=== PATIENT | male | born 1990 | race Two or more races ===

== ENCOUNTER 2018-12-12 11:34 | Emergency (ER) | payer SELFPAY ==
[2018-12-12] MEDS ORDERED: Lidocaine 1% 10 ML MDV INJECT ONE (11:48)
[2018-12-12] MEDS ORDERED: Diphtheria,Pertussis(Acell),Tetanus Vaccine 0.5 ML Syringe IM ONE (11:48)
[2018-12-12] MEDS ORDERED: Bacitracin Oint 1 GM U/D Packet TOP ONE (11:51)
--- NOTE | 2018-12-12 11:51 | EDM.PDOC ---
ED HPI GENERAL MEDICAL PROBLEM - General Chief Complaint: Laceration Stated Complaint: CUT FINGER Time Seen by Provider: 12/12/18 11:39 Source of Information: Reports: Patient, Search Engine Optimization Strategist History Limitations: Reports: No Limitations, Language Barrier - History of Present Illness INITIAL COMMENTS - FREE TEXT/NARRATIVE: HISTORY AND PHYSICAL: History of present illness: Patient is a 28-year-old male who is primarily speaking but is in with a friend who is interpreting for him, presents to the ED today after pinching his left ring finger in a boat hinge. Patient states he is not up-to-date on his vaccinations. Patient states she's been able to move his hand and has not had any difficulties or pain. Patient denies any prior injury to the area. Patient denies any other symptoms or concerns at this time. Patient denies fever, chills, chest pain, shortness of breath, or cough. Denies headache, neck stiff ness, change in vision, syncope, or near syncope. Denies nausea, vomiting, abdominal pain, diarrhea, constipation, or dysuria. Has not noted any blood in urine or stool. Patient has been eating and drinking appropriately. Review of systems: As per history of present illness and below otherwise all systems reviewed and negative. Past medical history: As per history of present illness and as reviewed below otherwise noncontributory. Surgical history: As per history of present illness and as reviewed below otherwise noncontributory. Social history: See social history for further information Family history: As per history of present illness and as reviewed below otherwise noncontributory. Physical exam: General: Patient is alert, oriented, and in no acute distress. Patient sitting comfortably on exam table. HEENT: Atraumatic, normocephalic, pupils equal and reactive bilaterally, negative for conjunctival pallor or scleral icterus, mucous membranes moist, TMs normal bilaterally, throat clear, neck supple, nontender, trachea midline. No drooling or trismus noted. No meningeal signs. No hot potato voice noted. Lungs: Clear to auscultation, breath sounds equal bilaterally, chest nontender. Heart: S1S2, regular rate and rhythm without overt murmur Abdomen: Soft, nondistended, nontender. Negative for masses or hepatosplenomegaly. Negative for costovertebral tenderness. Pelvis: Stable nontender. Genitourinary: Deferred. Rectal: Deferred. Skin: Intact, warm, dry. No lesions or rashes noted. Extremities: negative for cords or calf pain. Neurovascular unremarkable. There is a 3 cm laceration in the webspace of the fourth digit on the left hand that is superficial. There is a 1 cm adjacent laceration is superficial on the fourth digit of the left hand. Minimal bleeding. Full range of motion/strength of all digits of the left hand. Radial pulses grossly intact with capillary refill less than 2 seconds. Neuro: Awake, alert, oriented. Cranial nerves II through XII unremarkable. Cerebellum unremarkable. Motor and sensory unremarkable throughout. Exam nonfocal. Notes: Discussed the importance for follow-up with primary care provider. Voices understanding and is agreeable to plan of care. Denies any further questions or concerns at this time. Diagnostics: Hand x-ray Therapeutics: Lidocaine, tdap, bacitracin Prescription: None Impression: Finger lacerations, 4th digit of left hand Plan: 1. Keep the area clean and dry. Continue to monitor for signs of infection as discussed. Sutures to be removed in 7-10 days. 2. Tylenol and/or ibuprofen as directed and as needed for pain management and discomfort. 3. Please follow-up with your primary care provider as discussed. Return to the ED as needed and as discussed. Definitive disposition and diagnosis as appropriate pending reevaluation and review of above. Lieft Middle Finger Pain Score (Numeric/FACES): 3 - Related Data Allergies Allergy/AdvReac Type Severity Reaction Status Date / Time No Known Allergies Allergy Verified 12/12/18 11:43 Home Meds: Home Meds . [No Known Home Meds] 12/12/18 [History] Past Medical History - Past Health History Medical/Surgical History: Denies Medical/Surgical History - Infectious Disease History Infectious Disease History: Reports: Chicken Pox Social & Family History - Family History Family Medical History: Noncontributory - Tobacco Use Smoking Status *Q: Never Smoker Second Hand Smoke Exposure: No - Caffeine Use Caffeine Use: Reports: Coffee - Recreational Drug Use Recreational Drug Use: No ED ROS GENERAL - Review of Systems Review Of Systems: ROS reveals no pertinent complaints other than HPI. ED EXAM, SKIN/RASH Exam: See Below (see dictation) ED SKIN PROCEDURES - Laceration/Wound Repair Left Digit - 4th (Ring) Lac/Wound length In cm: 3 (1cm adjacent laceration) Appearance: Superficial, Linear, Clean Distal NVT: Neuro & Vascular Intact, No Tendon Injury Anesthetic Type: Local Local Anesthesia - Lidocaine (Xylocaine): 1% Plain Local Anesthetic Volume: Other (7cc) Skin Prep: Chlorhexidine (Hibiciens) Saline Irrigation (cc's): 30 Exploration/Debridement/Repair: Wound Explored, In a Bloodless Field, Explored to Base, No Foreign Material Found Closed with: Sutures Suture Size: 4-0 # of Sutures: 8 (6 sutures in the longer laceration, 2 in the smaller) Suture Type: Silk, Interrupted Drain Placement: No Sterile Dressing Applied: Nurse Tetanus Status Addressed: Yes Complications: No Course - Vital Signs Last Recorded V/S: Last Vital Signs Temp 36.1 C 12/12/18 11:44 Pulse 73 12/12/18 11:44 Resp 17 12/12/18 11:44 BP 143/83 H 12/12/18 11:44 Pulse Ox 98 12/12/18 11:44 - Orders/Labs/Meds Orders: Active Orders 24 hr Category Date Time Status Vaccines to be Administered [RC] PER UNIT ROUTINE Care 12/12/18 11:48 Active Meds: Medications Discontinued Medications Generic Name Dose Route Start Last Admin Trade Name Freq PRN Reason Stop Dose Admin Bacitracin 1 dose 12/12/18 11:51 Bacitracin Oint 1 Gm TOP 12/12/18 11:52 ONETIME ONE Diphtheria/Tetanus/Acell Pertussis 0.5 ml 12/12/18 11:48 Adacel IM 12/12/18 11:49 .ONCE ONE Lidocaine HCl Confirm 12/12/18 12:00 Xylocaine-Mpf 1% Administered 12/12/18 12:01 Dose 5 mls @ as directed .ROUTE .STK-MED ONE Lidocaine HCl 10 ml 12/12/18 11:48 Xylocaine 1% INJECT 12/12/18 11:49 ONETIME ONE Departure - Departure Time of Disposition: 12:39 Disposition: Home, Self-Care 01 Clinical Impression: Finger laceration Qualifiers: Encounter type: initial encounter Finger: ring finger Damage to nail status: without damage Foreign body presence: without foreign body Laterality: left Qualified Code(s): S61.215A - Laceration without foreign body of left ring finger without damage to nail, initial encounter - Discharge Information Forms: ED Department Discharge Additional Instructions: The following information is given to patients seen in the emergency department who are being discharged to home. This information is to outline your options for follow-up care. We provide all patients seen in our emergency department with a follow-up referral. The need for follow-up, as well as the timing and circumstances, are variable depending upon the specifics of your emergency department visit. If you don't have a primary care physician on staff, we will provide you with a referral. We always advise you to contact your personal physician following an emergency department visit to inform them of the circumstance of the visit and for follow-up with them and/or the need for any referrals to a consulting specialist. The emergency department will also refer you to a specialist when appropriate. This referral assures that you have the opportunity for follow-up care with a specialist. All of these measure are taken in an effort to provide you with optimal care, which includes your follow-up. Under all circumstances we always encourage you to contact your private physician who remains a resource for coordinating your care. When calling for follow-up care, please make the office aware that this follow-up is from your recent emergency room visit. If for any reason you are refused follow-up, please contact the [facility] Emergency Department at and asked to speak to the emergency department charge nurse. [facility] [address] [place], [place] [id number] [place] [address] 1. Keep the area clean and dry. Continue to monitor for signs of infection as discussed. Sutures to be removed in 7-10 days. 2. Tylenol and/or ibuprofen as directed and as needed for pain management and discomfort. 3. Please follow-up with your primary care provider as discussed. Return to the ED as needed and as discussed. - My Orders Last 24 Hours: My Active Orders 12/12/18 11:48 Vaccines to be Administered [RC] PER UNIT ROUTINE - Assessment/Plan Last 24 Hours: My Active Orders 12/12/18 11:48 Vaccines to be Administered [RC] PER UNIT ROUTINE
--- NOTE | 2018-12-12 12:24 | CR ---
EXAMINATION: Left hand HISTORY: Laceration COMPARISON: None TECHNIQUE: 3 views FINDINGS/IMPRESSION: There is no acute osseous abnormality, dislocation, or fracture. Bone mineralization and joint spaces appear preserved. No subcutaneous air or definitive foreign body adjacent to the third digit.
== END 2018-12-12 13:00 | disposition home or self-care (01) ==
LOC: MW.ED 11:34
DX: S61.215A Laceration without foreign body of left ring finger without damage to nail, initial encounter (principal); S61.412A Laceration without foreign body of left hand, initial encounter; Z23 Encounter for immunization; W23.0XXA Caught, crushed, jammed, or pinched between moving objects, initial encounter
CPT/HCPCS: 12002; 73130; 90471; 90715; 99283; J2001